=== PATIENT | male | born 1945 | race Caucasian/White ===

== ENCOUNTER 2021-08-03 15:01 | Emergency (ER) | payer OTHER ==
[2021-08-03 17:49] LABS: HEMOGLOBIN 9.2 gm/dl (14.0-17.5); RED BLOOD COUNT 3.41 M/UL (4.20-5.50); WHITE BLOOD COUNT 9.1 K/UL (4.5-11.0)
[2021-08-03 18:17] LABS: BUN/CREATININE RATIO 17 (0-10)
== END 2021-08-03 22:05 | disposition short-term general hospital (02) ==
LOC: ER1 15:01
PROVIDERS: Nurse Practitioner
DX: Z00.01 Encounter for general adult medical examination with abnormal findings (principal); E78.5 Hyperlipidemia, unspecified; E11.9 Type 2 diabetes mellitus without complications; I10 Essential (primary) hypertension; Z96.659 Presence of unspecified artificial knee joint; R17 Unspecified jaundice; Z20.822 Contact with and (suspected) exposure to COVID-19
CPT/HCPCS: 80053; 80307; 81001; 82140; 82550; 82553; 82962; 83605; 83690; 83874; 83880; 84484; 85025; 85610; 87040; 96374; 99283; J2405; U0002

== ENCOUNTER 2022-05-28 09:32 | Emergency (ER) | payer OTHER ==
[2022-05-28] MEDS ORDERED: VIBRAMYCIN 100100 MG PO (10:40)
== END 2022-05-28 11:10 | disposition home or self-care (01) ==
LOC: ER1 09:32
DX: L03.115 Cellulitis of right lower limb (principal); E11.9 Type 2 diabetes mellitus without complications; Z79.4 Long term (current) use of insulin; I10 Essential (primary) hypertension; E78.5 Hyperlipidemia, unspecified
CPT/HCPCS: 99282